=== PATIENT | female | born 1955 | race Two or more races ===

== ENCOUNTER 2017-04-11 10:46 | Day surgery (SDC) | payer BC, OTHER ==
[2017-04-11] MEDS ORDERED: PROPOFOL 200 MG/20 ML BOTTLE IV ONE (10:47)
[2017-04-11] MEDS ORDERED: LIDOCAINE HCL 2% 20 ML VIAL MC ONE (10:47)
[2017-04-11] MEDS ORDERED: IV NORMAL SALINE 1000 ML BAG IV ONE (10:47)
[2017-04-11 11:24] LABS: BASOPHILS # (AUTO) 0.1 K/uL (0.0-8.0); BASOPHILS % (AUTO) 0.7 % (0.0-2.0); EOSINOPHILS # (AUTO) 0.1 K/uL (0.0-0.7); EOSINOPHILS % (AUTO) 0.9 % (0.0-7.0); HEMATOCRIT 45.1 % (37-47); HEMOGLOBIN 14.9 G/DL (12.0-16.0); LYMPHOCYTES # (AUTO) 2.3 K/UL (0.8-4.8); LYMPHOCYTES % (AUTO) 28.5 % (20.5-51.5); MEAN CORPUSCULAR HEMOGLOBIN 29.5 UUG (27.0-31.0); MEAN CORPUSCULAR HGB CONC 33 g/dL (32.0-37.0); MEAN CORPUSCULAR VOLUME 89.3 FL (81.0-99.0); MONOCYTES # (AUTO) 0.4 K/UL (0.1-1.30); MONOCYTES % (AUTO) 4.8 % (0.0-11.0); NEUTROPHILS # (AUTO) 5.2 K/UL (1.8-8.9); NEUTROPHILS % (AUTO) 65.1 % (38.5-71.5); PLATELET COUNT (AUTO) 173 K/UL (150-450); RED BLOOD CELL COUNT(AUTO) 5.05 MIL/UL (4.2-5.4); WHITE BLOOD COUNT (AUTO) 8.1 K/UL (4.0-11.2)
[2017-04-11 11:30] LABS: CREATININE 1.1 mg/dL (0.6-1.3); POTASSIUM 4.1 mmol/L (3.5-5.1)
[2017-04-11 11:33] LABS: *BILIRUBIN,URIN NEGATIVE (NEGATIVE); *BLOOD, URINE Trace-intact (NEGATIVE); *COLOR,URINE YELLOW (YELLOW); *KETONES,URINE NEGATIVE (NEGATIVE); *PROTEIN,URINE NEGATIVE (NEGATIVE); *UROBILINOGEN,URINE 0.2 E.U./dl (NORMAL); LEUKOCYTE ESTERASE ,URINE NEGATIVE (NEGATIVE); NITRITE, URINE NEGATIVE (NEGATIVE)
[2017-04-11 11:36] LABS: *CLARITY,URINE HAZY (CLEAR); UGLUCOSE 2+ (NEGATIVE)
[2017-04-11 11:42] LABS: BACTERIA,URINE NONE SEEN /HPF (NONE SEEN); RBC,URINE NONE SEEN /HPF (0-3); SQUAMOUS EPITHELIAL CELL,UR NONE SEEN /HPF (NONE SEEN); WBC,URINE 0-3 /HPF (0-3)
== END 2017-04-11 14:32 | disposition home or self-care (01) ==
LOC: DS 10:46
PROVIDERS: ATTEND Internal Medicine Gastroenterology
DX: R13.10 Dysphagia, unspecified (principal); K29.70 Gastritis, unspecified, without bleeding; K75.81 Nonalcoholic steatohepatitis (NASH); K21.9 Gastro-esophageal reflux disease without esophagitis; I10 Essential (primary) hypertension; E11.9 Type 2 diabetes mellitus without complications; E66.01 Morbid (severe) obesity due to excess calories; Z98.890 Other specified postprocedural states; Z79.84 Long term (current) use of oral hypoglycemic drugs; Z87.891 Personal history of nicotine dependence; Z90.49 Acquired absence of other specified parts of digestive tract; Z90.710 Acquired absence of both cervix and uterus; Z88.8 Allergy status to other drugs, medicaments and biological substances; Z85.3 Personal history of malignant neoplasm of breast
CPT/HCPCS: 36415; 71010; 85025; 85730; 93005; A4217; A4663; J3490; J7030

== ENCOUNTER 2019-02-06 19:02 | Inpatient (IN) | payer BC, OTHER ==
[~2019-02-06] VITALS: Ht 167.6 cm; Wt 115.2 kg
[2019-02-06 20:45] VITALS: BP 155/77
[2019-02-06] MEDS ORDERED: MORP15TA60 PO (22:39)
[2019-02-06] MEDS ORDERED: DULA1.5P SQ (22:39)
[2019-02-06] MEDS ORDERED: ATOR10TA PO (22:39)
[2019-02-06] MEDS ORDERED: GABA300C PO (22:39)
[2019-02-06] MEDS ORDERED: OXYC5CAP18 PO ×2 (22:39)
[2019-02-06] MEDS ORDERED: OXYC5TAB3 PO (22:39)
[2019-02-06] MEDS ORDERED: METO25TA6 PO (22:39)
[2019-02-06] MEDS ORDERED: EMPA1TAB7 PO (22:39)
[2019-02-06] MEDS ORDERED: DEXTROSE 50% 50 ML DISP.SYRIN IV PRN (22:45)
[2019-02-06] MEDS ORDERED: HOME MED MISCELLANEOUS XX SCH ×2 (23:00)
[2019-02-06] MEDS ORDERED: OXYCODONE HCL 5 MG TABLET PO PRN ×2 (23:00)
[2019-02-07] MEDS: MORPHINE SULFATE SR 15 MG TABLET.SA PO SCH ×4 (00:19→21:05)
[2019-02-07 04:00] VITALS: BP 114/48
[2019-02-07] MEDS ORDERED: Z GUARD REMEDY PASTE 57 GM TUBE TOP PRN (04:00)
--- NOTE | 2019-02-07 04:56 | NUR ---
Patient arrived in the [facility] at 2044 via gurney and by two paramedics. AAO x4. Able to make needs known. Condition fair. VS: BP:155/77, HR:96, RR:16, O2 SAT: 98% on room air, T: 98.0. Admitting diagnosis: S/P Thoracic 8-9 laminectomy, Thoracic spinal stenosis. Dr. Martin was informed of admission. Patient interviewed, Physical and initial assessment done. Medication reconciliation done and contacted epic on-call doctor. All admission work done. Skin assessed and pictures taken and put in the chart. MRSA Swap sent to the lab. Pain assessed and reassessed after pain medication. Assisted her to the bathroom as needed. Keep her clean and dry. Safety measures maintained. Fall precaution observed. Bed in low position, side rails up x2 for safety, brake and alarm on. Patient educated to use the call light. Call light and personal belongings within reach. Will continue to monitor and will endorse to the day shift nurse accordingly.
[2019-02-07] MEDS: BLOOD SUGAR DIAGNOSTIC 1 EACH STRIP VI SCH ×4 (06:39→20:47)
[2019-02-07] MEDS: GABAPENTIN 300 MG CAPSULE PO SCH ×3 (08:16→17:16)
[2019-02-07] MEDS: METOPROLOL TARTRATE 25 MG TABLET PO SCH ×2 (08:16→17:17)
[2019-02-07] MEDS: OXYCODONE HCL 5 MG TABLET PO PRN ×4 (08:18→22:12)
[2019-02-07] MEDS: INSULIN REGULAR, HUMAN 300 UNIT/3 ML VIAL SQ PRN ×4 (08:26→21:04)
--- NOTE | 2019-02-07 08:30 | NUR ---
Received patient, awake, alert x4. Sitting in bed. With pain over mid to lower back rated as 8/10. PRN Oxycodone given. Not in any form of distress. TLSO brace kept in place. Right arm precautions maintained.
[2019-02-07 09:00] VITALS: BP 112/63
[2019-02-07] MEDS ORDERED: ATORVASTATIN 10 MG TABLET PO SCH (09:00)
--- NOTE | 2019-02-07 11:32 | NUR ---
Up with physical therapy, able to ambulate with front wheel walker. Tolerating therapy well.
--- NOTE | 2019-02-07 16:29 | NUR ---
Stone Crusher Operator assessment completed.
[2019-02-07 17:00] VITALS: BP 145/55
[2019-02-07 20:02] VITALS: BP 124/47
[2019-02-07 20:07] VITALS: BP 124/46
[2019-02-07] MEDS: ACETAMINOPHEN 325 MG TABLET PO PRN (20:48)
[2019-02-07] MEDS: ATORVASTATIN 10 MG TABLET PO SCH (20:48)
--- NOTE | 2019-02-07 21:14 | NUR ---
Received pt resting in bed. AAO x4. Assisted to the bathroom and walked around the hallway. TLSO brace on upon ambulation. No acute distress noted. C/o 8/10 generalized pain. Routine meds and pain med given as ordered. Temp elevated 99.8F. Tylenol PRN given. No s/s of infection on surgical site. Cooling measures provided. Blood sugar of 167, insulin coverage given as ordered. No s/s of hypo/hyperglycemia. Safety measures maintained. Call light and personal belongings within reach. Will continue to monitor.
--- NOTE | 2019-02-07 23:43 | NUR ---
Urine collected and sent to the lab.
--- NOTE | 2019-02-07 23:51 | NUR ---
Temp went down to 97.8F. Will continue to monitor.
[2019-02-07 23:54] LABS: *BILIRUBIN,URIN NEGATIVE (NEGATIVE); *BLOOD, URINE NEGATIVE (NEGATIVE); *CLARITY,URINE CLEAR (CLEAR); *COLOR,URINE LIGHT YELLOW (YELLOW); *KETONES,URINE NEGATIVE (NEGATIVE); *UROBILINOGEN,URINE 0.2 E.U./dl (NORMAL); LEUKOCYTE ESTERASE ,URINE NEGATIVE (NEGATIVE); NITRITE, URINE NEGATIVE (NEGATIVE); PH,URINE 5.5 (5.0-8.0); UGLUCOSE NEGATIVE (NEGATIVE)
[2019-02-08 05:29] VITALS: BP 126/54
[2019-02-08] MEDS: MORPHINE SULFATE SR 15 MG TABLET.SA PO SCH ×3 (05:29→21:06)
[2019-02-08] MEDS: BLOOD SUGAR DIAGNOSTIC 1 EACH STRIP VI SCH ×4 (06:33→20:10)
[2019-02-08 07:30] VITALS: BP 123/43
--- NOTE | 2019-02-08 07:30 | NUR ---
patient is alert, oriented x4,verbally responsive,no sob,resp even nonlabored,skin warm and dry to touch, no acute distress noted at this time
[2019-02-08 07:49] LABS: BASOPHILS % (AUTO) 0.8 % (0.0-2.0); EOSINOPHILS # (AUTO) 0.2 K/uL (0.0-0.7); EOSINOPHILS % (AUTO) 3.6 % (0.0-7.0); HEMATOCRIT 37.6 % (31.2-41.9); HEMOGLOBIN 12.5 g/dL (10.9-14.3); LYMPHOCYTES # (AUTO) 1.2 K/uL (20.0-40.0); LYMPHOCYTES % (AUTO) 19.9 % (20.5-51.5); MEAN CORPUSCULAR HGB CONC 33 g/dL (32.3-35.6); MEAN CORPUSCULAR VOLUME 89.8 fL (75.5-95.3); MONOCYTES # (AUTO) 0.5 K/uL (2.0-10.0); MONOCYTES % (AUTO) 8.4 % (0.0-11.0); NEUTROPHILS # (AUTO) 4.2 K/uL (1.8-8.9); NEUTROPHILS % (AUTO) 67.3 % (38.5-71.5); PLATELET COUNT (AUTO) 208 K/uL (179-408); RED BLOOD CELL COUNT(AUTO) 4.18 MIL/uL (3.63-4.92); WHITE BLOOD COUNT (AUTO) 6.3 K/uL (3.8-11.8)
[2019-02-08 08:07] LABS: THYROID STIMULATING HORMONE 0.533 mIU/mL (0.358-3.740)
[2019-02-08] MEDS: INSULIN REGULAR, HUMAN 300 UNIT/3 ML VIAL SQ PRN ×4 (08:27→20:13)
[2019-02-08 08:28] LABS: BILIRUBIN,TOTAL 0.4 mg/dL (0.2-1.0); CREATININE 0.8 mg/dL (0.6-1.3); PHOSPHOROUS 3.9 mg/dL (2.5-4.9); POTASSIUM 4.5 mmol/L (3.5-5.1); TOTAL PROTEIN, SERUM 6.4 g/dL (6.4-8.2); URIC ACID 5.8 mg/dL (2.6-6.0)
[2019-02-08] MEDS: OXYCODONE HCL 5 MG TABLET PO PRN ×4 (08:34→23:10)
[2019-02-08] MEDS: GABAPENTIN 300 MG CAPSULE PO SCH ×3 (08:34→17:11)
[2019-02-08] MEDS: METOPROLOL TARTRATE 25 MG TABLET PO SCH ×2 (09:00→17:11)
--- NOTE | 2019-02-08 11:39 | NUR ---
WOUND CARE CONSULT: PT PRESENTS WITH INTACT SKIN. PT IS AMBULATORY WITH WALKER AND CONTINENT. NO SKIN TEAR NOTED BETWEEN BUTTOCKS AT THIS TIME. PT STATES THAT SKIN ISSUE HAS RESOLVED. WILL SEE PRN. CURRENT SABAS SCORE IS 20.
--- NOTE | 2019-02-08 12:52 | NUR ---
INTERDISCIPLINARY TEAM CONFERENCE
[2019-02-08] MEDS: ACETAMINOPHEN 325 MG TABLET PO PRN (17:11)
--- NOTE | 2019-02-08 18:40 | NUR ---
END OF SHIFT NOTE PATIENT IS ALERT, ORIENTED X4, VERBALLY RESPONSIVE,NO SOB, RESP EVEN NONLABORED,SKIN WARM AND DRY TO TOUCH, NO ACUTE DISTRESS NOTED, PATIENT TOLERATED PT, OT SERVICES WELL, AMBULATING WITH FWW, ASSISTED WITH PERICARE, NOTED WITH TEMP 99.0, TYLENOL GIVEN ORDERED, PAIN IS MANAGED WITH ROUTINE MS CONTIN AND OXYIR EVERY 4 HOURS NEEDED. PATIENT REQUESTED OXYIR EVERY 4 HOURS FOR PAIN, DENIED ANY NAUSEA, OR VOMITING, HAD LARGE SOFT BM. CONTINUE WITH CURRENT PLAN OF CARE, WILL ENDORSE TO NEXT SHIFT ACCORDINGLY.
[2019-02-08 19:30] VITALS: BP 106/34
[2019-02-08] MEDS: ATORVASTATIN 10 MG TABLET PO SCH (20:10)
--- NOTE | 2019-02-08 20:41 | NUR ---
Received pt resting in bed. Assisted to the bathroom using walker, TLSO brace on during ambulation. AAO x4. No acute distress noted. Surgical site on the back healing well, no s/s of infection. Safety measures maintained. Call light and personal belongings within reach. Will continue to monitor.
[2019-02-09 04:20] VITALS: BP 116/58
[2019-02-09] MEDS: OXYCODONE HCL 5 MG TABLET PO PRN ×3 (04:20→17:02)
[2019-02-09] MEDS: MORPHINE SULFATE SR 15 MG TABLET.SA PO SCH ×3 (06:18→21:01)
[2019-02-09] MEDS: BLOOD SUGAR DIAGNOSTIC 1 EACH STRIP VI SCH ×4 (06:32→20:53)
[2019-02-09 07:00] VITALS: BP 131/46
[2019-02-09] MEDS: GABAPENTIN 300 MG CAPSULE PO SCH ×3 (08:34→17:02)
[2019-02-09] MEDS: METOPROLOL TARTRATE 25 MG TABLET PO SCH ×3 (08:34→17:13)
[2019-02-09] MEDS: INSULIN REGULAR, HUMAN 300 UNIT/3 ML VIAL SQ PRN ×4 (08:41→20:45)
--- NOTE | 2019-02-09 09:00 | NUR ---
Patient noted sitting up in bed, complaints of pain 7/10 in back, PRN Oxycodone 15mg given at this time, no signs of distress noted, TLSO brace placed this morning, call light in reach, bed locked and in lowest position, all needs met at this time.
--- NOTE | 2019-02-09 15:14 | NUR ---
INDIVIDUALIZE OVERALL PLAN OF CARE
[2019-02-09 16:00] VITALS: BP 149/64
[2019-02-09 19:38] VITALS: BP 110/47
--- NOTE | 2019-02-09 19:56 | NUR ---
Patient received in bed, AAO x4, able to make needs known. No acute distress or SOB noted. On room air. Complained of pain on her back rated 7/10 in numeric scale. Physical assessment done. Safety measures observed. Fall precaution maintained. Bed in low position, side rails up x2 for safety, brake and alarm on. call light and personal belongings within reach. Continue to monitor.
[2019-02-09] MEDS: ATORVASTATIN 10 MG TABLET PO SCH (20:57)
[2019-02-10] MEDS: OXYCODONE HCL 5 MG TABLET PO PRN ×2 (00:14→09:25)
--- NOTE | 2019-02-10 06:02 | NUR ---
End of the shift note Patient was stable throughout the shift and has a good sleep last night. No acute distress or SOB noted. On room air. Complained of pain on her back. VS checked. Accucheck at 2100, BS: 189 with 3 units insulin coverage based on insulin sliding scale. Physical assessment done. Pain assessed and reassessed after pain medication. All due medications given as ordered and well tolerated. Assisted her to the bathroom as needed. Keep her clean and dry. Hourly round done. Safety measures observed. Fall precaution maintained. Bed in low position, side rails up x2 for safety, brake and alarm on. call light and personal belongings within reach. Continue to monitor and will endorse to the day shift nurse accordingly.
[2019-02-10] MEDS: MORPHINE SULFATE SR 15 MG TABLET.SA PO SCH ×3 (06:34→21:08)
[2019-02-10] MEDS: BLOOD SUGAR DIAGNOSTIC 1 EACH STRIP VI SCH ×4 (06:37→20:43)
[2019-02-10 06:43] VITALS: BP 122/44
--- NOTE | 2019-02-10 08:00 | NUR ---
Received patient, awake, alert x4. With pain over lower back rated as 6/10. Not in any form of distress. No dizziness, headache, SOB or chest pains noted. Morning care done, oral care done.
[2019-02-10] MEDS: INSULIN REGULAR, HUMAN 300 UNIT/3 ML VIAL SQ PRN ×4 (08:20→20:21)
[2019-02-10] MEDS: CYANOCOBALAMIN 1000 MCG/ML VIAL IM SCH (08:23)
[2019-02-10] MEDS: GABAPENTIN 300 MG CAPSULE PO SCH ×3 (08:24→17:09)
[2019-02-10] MEDS: GLIMEPIRIDE 2 MG TABLET PO SCH (08:24)
[2019-02-10] MEDS: METOPROLOL TARTRATE 25 MG TABLET PO SCH ×2 (08:24→17:10)
[2019-02-10 09:00] VITALS: BP 128/50
--- NOTE | 2019-02-10 11:22 | NUR ---
Up with occupational therapy, tolerating well. PRN oxycodone given prior to therapy, tolerating well. Able to ambulate, no s/s of hypoglycemia, no doziness noted. With tolerable pain levels.
--- NOTE | 2019-02-10 19:22 | NUR ---
Patient received in bed, AAO x4, able to make needs known. No acute distress or SOB noted. On room air. Complained of pain on her back rated 6/10 in numeric scale. Physical assessment done. Asked her about her concerns and tried to addressed all those. Safety measures observed. Fall precaution maintained. Bed in low position, side rails up x2 for safety, brake and alarm on. call light and personal belongings within reach. Continue to monitor.
[2019-02-10 19:36] VITALS: BP 135/50
[2019-02-10] MEDS: ATORVASTATIN 10 MG TABLET PO SCH (20:18)
[2019-02-10] MEDS: DOCUSATE SODIUM 100 MG CAPSULE PO SCH (20:18)
[2019-02-11] MEDS: OXYCODONE HCL 5 MG TABLET PO PRN ×5 (00:12→23:41)
[2019-02-11 05:33] VITALS: BP 105/41
--- NOTE | 2019-02-11 05:54 | NUR ---
End of the shift note Patient was stable throughout the shift and has a good sleep last night. No acute distress or SOB noted. On room air. Complained of pain on her back. VS checked. Accucheck at 2100, BS: 280 with 6 units insulin coverage based on insulin sliding scale. Physical assessment done. Pain assessed and reassessed after pain medication. All due medications given as ordered and well tolerated. Assisted her to the bathroom as needed. Keep her clean and dry. Hourly round done. Safety measures observed. Fall precaution maintained. Bed in low position, side rails up x2 for safety, brake and alarm on. call light and personal belongings within reach. Continue to monitor and will endorse to the day shift nurse
[2019-02-11] MEDS: MORPHINE SULFATE SR 15 MG TABLET.SA PO SCH ×3 (06:23→21:04)
[2019-02-11] MEDS: BLOOD SUGAR DIAGNOSTIC 1 EACH STRIP VI SCH ×4 (06:32→20:11)
[2019-02-11] MEDS: GLIMEPIRIDE 2 MG TABLET PO SCH (08:34)
[2019-02-11] MEDS: METOPROLOL TARTRATE 25 MG TABLET PO SCH ×2 (08:34→17:09)
[2019-02-11] MEDS: GABAPENTIN 300 MG CAPSULE PO SCH ×3 (08:34→17:08)
[2019-02-11] MEDS: CYANOCOBALAMIN 1000 MCG/ML VIAL IM SCH (08:35)
[2019-02-11] MEDS: INSULIN REGULAR, HUMAN 300 UNIT/3 ML VIAL SQ PRN ×4 (08:48→20:12)
--- NOTE | 2019-02-11 09:27 | NUR ---
Patient noted sitting up in bed, assisted to restroom at this time, complaints of back pain 06/04, prn medication given, patient assisted to chair for breakfast, call light in reach, took all AM medications
[2019-02-11 16:00] VITALS: BP 139/41
--- NOTE | 2019-02-11 18:38 | NUR ---
PRN pain medications given for back pain this shift, no signs of distress, continued with TLSO brace, incision site on back clean and open to air.
[2019-02-11 19:20] VITALS: BP 134/51
[2019-02-11 19:25] VITALS: BP 115/51
--- NOTE | 2019-02-11 19:35 | NUR ---
PATIENT RECEIVED IN BED WATCHING TV. ALERT AND ORIENTED X 4. C/O PAIN UPON ASSESSMENT. OXY 15 GIVEN FOR PAIN MANAGEMENT. NO ASE. NO SOB OR DISTRESS NOTED AT THIS TIME. TOWEL IN PLACE FOR COMFORT BEHIND BACK. SUTURES IN TACT. SIDE RAILS UP BILATERALLY FOR SAFETY. CALL LIGHT AND FREQUENTLY USED ITEMS WITHIN REACH. WILL CONTINUE TO MONITOR.
[2019-02-11] MEDS: ATORVASTATIN 10 MG TABLET PO SCH (20:13)
[2019-02-11] MEDS: DOCUSATE SODIUM 100 MG CAPSULE PO SCH (20:13)
[2019-02-12] MEDS: OXYCODONE HCL 5 MG TABLET PO PRN ×5 (03:41→23:15)
[2019-02-12] MEDS: MORPHINE SULFATE SR 15 MG TABLET.SA PO SCH ×3 (05:46→21:02)
[2019-02-12 06:23] VITALS: BP 113/42
[2019-02-12] MEDS: BLOOD SUGAR DIAGNOSTIC 1 EACH STRIP VI SCH ×4 (06:30→20:44)
--- NOTE | 2019-02-12 06:37 | NUR ---
Patient slept on and off over night. PRN pain medications given x3. All due medications given, tolerated well. Morning BS shown to be 149. Side rails up bilaterally safety. Patient repositioned for comfort. Call light and frequently used items within reach. Will endorse to oncoming shift accordingly.
[2019-02-12 07:41] VITALS: BP 110/42
[2019-02-12] MEDS: GLIMEPIRIDE 2 MG TABLET PO SCH (08:09)
[2019-02-12] MEDS: METOPROLOL TARTRATE 25 MG TABLET PO SCH (08:09)
[2019-02-12] MEDS: GABAPENTIN 300 MG CAPSULE PO SCH ×3 (08:09→17:09)
[2019-02-12] MEDS: CYANOCOBALAMIN 1000 MCG/ML VIAL IM SCH (08:10)
[2019-02-12] MEDS: INSULIN REGULAR, HUMAN 300 UNIT/3 ML VIAL SQ PRN ×4 (08:19→20:59)
--- NOTE | 2019-02-12 08:40 | NUR ---
Patient assisted to chair at this time, call light in reach, no signs of distress noted, Complaints of back pain 06/04, PRN pain medication given at this time, took all AM medications, TLSO brace in place, 100% percent of breakfast eaten, will continue to monitor
[2019-02-12 15:43] VITALS: BP 122/43
--- NOTE | 2019-02-12 18:56 | NUR ---
PRN pain medication given this shift, no changes this shift, patient noted ambulating to restroom this shift with just stand by assist, all needs met at this time
[2019-02-12 19:16] VITALS: BP 137/54
[2019-02-12] MEDS: DOCUSATE SODIUM 100 MG CAPSULE PO SCH (20:49)
[2019-02-12] MEDS: ATORVASTATIN 10 MG TABLET PO SCH (20:50)
--- NOTE | 2019-02-12 21:13 | NUR ---
Received pt resting in bed and watching tv. AAO x4. No acute distress noted. C/o pain 8/10 on the back. Routine pain med and other due meds given as ordered. Blood sugar of 194, insulin coverage given per sliding scale. Safety measures maintained. Call light and personal belongings within reach. Will continue to monitor.
[2019-02-13] MEDS: OXYCODONE HCL 5 MG TABLET PO PRN ×4 (03:23→20:39)
[2019-02-13 06:14] VITALS: BP 102/44
[2019-02-13] MEDS: MORPHINE SULFATE SR 15 MG TABLET.SA PO SCH ×3 (06:17→21:01)
[2019-02-13] MEDS: BLOOD SUGAR DIAGNOSTIC 1 EACH STRIP VI SCH ×4 (06:36→20:37)
[2019-02-13] MEDS: GABAPENTIN 300 MG CAPSULE PO SCH ×3 (08:17→16:19)
[2019-02-13] MEDS: GLIMEPIRIDE 2 MG TABLET PO SCH (08:17)
[2019-02-13] MEDS: CYANOCOBALAMIN 1000 MCG/ML VIAL IM SCH (08:18)
[2019-02-13] MEDS: INSULIN REGULAR, HUMAN 300 UNIT/3 ML VIAL SQ PRN ×4 (08:23→20:39)
[2019-02-13] MEDS: BENAZEPRIL HCL 10 MG TABLET PO SCH (08:24)
[2019-02-13 08:44] VITALS: BP 133/61
--- NOTE | 2019-02-13 09:01 | NUR ---
Received pt. on bed, comfortable in no distress. A/OX4 verbally responsive and able to make her needs known. Denies CP or SOB. All due medications given and tolerated well. No s/sx of hypo/hyperglycemia. No new skin condition noted. All pt. needs attended and met promptly. Safety measures in place. Call light and all frequently used items within pt. reach.
[2019-02-13 17:08] VITALS: BP 132/67
--- NOTE | 2019-02-13 18:27 | NUR ---
End of shift note: No sign of acute distress or SOB was noted. Kept pt clean and dry throughout this shift. Safety measures maintained. All needs attended and met promptly. Bed in low position, brake on, side rails up x2 as an enabler. Call light and all frequently used items within pt. reach. Will endorse to next shift accordingly
--- NOTE | 2019-02-13 19:18 | NUR ---
Pt. with c/o RT/LT flank area muscle spasms. Dr. Martin promptly made aware with order for Robaxin 500 mg po TID PRN. Orders noted and carried out. Pt. made aware.
[2019-02-13 19:26] VITALS: BP 112/47
--- NOTE | 2019-02-13 19:37 | NUR ---
Patient received in be alert and oriented x 4, watching TV in bed. C/O flank pain. Will administer Robaxin when pharmacy delivers medication. No C/O distress or SOB at this time. Back sutures in tact and open to air. Protected with a towel. Water refreshed, and bathroom needs attended to. Sire rails up bilaterally for safety. Call light and frequently used items within reach. Will continue to monitor.
[2019-02-13] MEDS: DOCUSATE SODIUM 100 MG CAPSULE PO SCH (20:39)
[2019-02-13] MEDS: ATORVASTATIN 10 MG TABLET PO SCH (20:39)
[2019-02-13] MEDS: METHOCARBAMOL 500 MG TABLET PO PRN (21:53)
[2019-02-14] MEDS: METHOCARBAMOL 500 MG TABLET PO PRN ×3 (02:27→20:58)
[2019-02-14] MEDS: OXYCODONE HCL 5 MG TABLET PO PRN ×2 (04:42→11:45)
[2019-02-14] MEDS: MORPHINE SULFATE SR 15 MG TABLET.SA PO SCH ×3 (05:04→21:00)
[2019-02-14 05:59] VITALS: BP 124/45
[2019-02-14] MEDS: BLOOD SUGAR DIAGNOSTIC 1 EACH STRIP VI SCH ×4 (06:39→20:38)
--- NOTE | 2019-02-14 07:00 | NUR ---
Patient slept poorly overnight. PRN pain medications given x2. All due medications given, tolerated well. Morning BS shown to be 172. Side rails up bilaterally safety. Patient repositioned for comfort. Call light and frequently used items within reach. Will endorse to oncoming shift accordingly.
[2019-02-14] MEDS: GABAPENTIN 300 MG CAPSULE PO SCH ×3 (08:24→16:51)
[2019-02-14] MEDS: GLIMEPIRIDE 2 MG TABLET PO SCH (08:24)
[2019-02-14] MEDS: INSULIN REGULAR, HUMAN 300 UNIT/3 ML VIAL SQ PRN ×4 (08:25→20:35)
[2019-02-14] MEDS: BENAZEPRIL HCL 10 MG TABLET PO SCH (08:44)
[2019-02-14 08:49] VITALS: BP 119/50
--- NOTE | 2019-02-14 08:54 | NUR ---
Received pt. in bed, comfortable in no distress. A/OX4 verbally responsive and able to make her needs known. All due medications given and tolerated well. No s/sx of hypo/hyperglycemia. No new skin condition noted. Pt. c/o mild muscle spasms around her lower back, PRN robaxin given as ordered. All pt. needs attended and met promptly. Safety measures in place. Call light and all frequently used items within pt. reach.
--- NOTE | 2019-02-14 13:14 | NUR ---
Obtained PRN MOM order from Dr. Martin per pt. request. MD amenable with order. Orders noted and carried out. Pt. made aware and thankful.
[2019-02-14] MEDS ORDERED: MAGNESIUM HYDROXIDE 30 ML LIQUID UDC PO PRN (13:15)
[2019-02-14 16:36] VITALS: BP 148/65
--- NOTE | 2019-02-14 18:05 | NUR ---
End of shift note: No significant change during this shift. All needs attended and met promptly. Safety measures in placed. Bed in low position, brake on, side rails up x2 as an enabler. Call light and all frequently used items within pt. reach. Will endorse to next shift accordingly
[2019-02-14 19:27] VITALS: BP 113/40
[2019-02-14] MEDS: DOCUSATE SODIUM 100 MG CAPSULE PO SCH (20:32)
[2019-02-14] MEDS: ATORVASTATIN 10 MG TABLET PO SCH (20:32)
[2019-02-15] MEDS: OXYCODONE HCL 5 MG TABLET PO PRN ×2 (01:38→10:45)
--- NOTE | 2019-02-15 06:01 | NUR ---
End of the shift note Patient was stable throughout the shift and has a good sleep last night. No acute distress or SOB noted. On room air. Complained of pain on her back. VS checked. Accucheck at 2100, BS: 192 with 3 units insulin coverage based on insulin sliding scale. Physical assessment done. Pain assessed and reassessed after pain medication. All due medications given as ordered and well tolerated. Assisted her to the bathroom as needed. Keep her clean and dry. Hourly round done. Safety measures observed. Fall precaution maintained. Bed in low position, side rails up x2 for safety, brake and alarm on. call light and personal belongings within reach. Continue to monitor and will endorse to the day shift nurse accordingly.
[2019-02-15] MEDS: MORPHINE SULFATE SR 15 MG TABLET.SA PO SCH ×3 (06:10→21:02)
[2019-02-15 06:26] VITALS: BP 126/54
[2019-02-15] MEDS: BLOOD SUGAR DIAGNOSTIC 1 EACH STRIP VI SCH ×4 (06:33→20:12)
[2019-02-15] MEDS: INSULIN REGULAR, HUMAN 300 UNIT/3 ML VIAL SQ PRN ×4 (08:03→20:11)
[2019-02-15] MEDS: GABAPENTIN 300 MG CAPSULE PO SCH ×3 (08:08→17:12)
[2019-02-15] MEDS: BENAZEPRIL HCL 10 MG TABLET PO SCH (08:09)
[2019-02-15] MEDS: GLIMEPIRIDE 2 MG TABLET PO SCH (08:09)
--- NOTE | 2019-02-15 08:11 | NUR ---
Received patient, awake alert x4. Not in any form of distress. No S/S of hypoglycemia. With tolerable pain over lower back. Said with discomfort over lower abdominal area and feels constipated.
[2019-02-15] MEDS ORDERED: BISACODYL 10 MG SUPP.RECT RC ONE (08:45)
[2019-02-15 09:00] VITALS: BP 131/61
[2019-02-15] MEDS ORDERED: LACTULOSE 20 G/30 ML LIQUID UDC PO PRN (10:30)
--- NOTE | 2019-02-15 14:22 | NUR ---
INTERDISCIPLINARY TEAM CONFERENCE
[2019-02-15 17:00] VITALS: BP 139/71
[2019-02-15] MEDS: METHOCARBAMOL 500 MG TABLET PO PRN (17:14)
[2019-02-15 19:42] VITALS: BP 128/72
[2019-02-15] MEDS: ATORVASTATIN 10 MG TABLET PO SCH (20:07)
[2019-02-15] MEDS: DOCUSATE SODIUM 100 MG CAPSULE PO SCH (20:08)
--- NOTE | 2019-02-15 23:30 | NUR ---
patient developed a high HR ranging from 102-117 after going to the bathroom. T:99.1, BP: 128/74, O2 sat: 97%. No other symptoms noted. Denied dizziness, headache, or other symptoms. Made patient comfortable, Morphine sulfate 15 mg (Scheduled pain medication) administered and closely monitored the patient. HR gradually came back to normal limit (92-96). Burglar Alarm Mechanic was informed about the patient condition. Continue to monitor.
[2019-02-16] MEDS: METHOCARBAMOL 500 MG TABLET PO PRN ×2 (00:38→18:43)
[2019-02-16] MEDS: OXYCODONE HCL 5 MG TABLET PO PRN ×4 (00:39→23:41)
--- NOTE | 2019-02-16 05:38 | NUR ---
End of the shift note Patient was stable throughout the shift and has a good sleep last night, except for a temporary high HR (described in separate note). No acute distress or SOB noted. On room air. Complained of pain on her back. VS checked. Accucheck at 2100, BS: 183 with 3 units insulin coverage based on insulin sliding scale. Physical assessment done. Pain assessed and reassessed after pain medication. All due medications given as ordered and well tolerated. Assisted her to the bathroom as needed. Keep her clean and dry. Hourly round done. Safety measures observed. Fall precaution maintained. Bed in low position, side rails up x2 for safety, brake and alarm on. call light and personal belongings within reach. Continue to monitor and will endorse to the day shift nurse accordingly.
[2019-02-16] MEDS: MORPHINE SULFATE SR 15 MG TABLET.SA PO SCH ×3 (06:05→21:06)
[2019-02-16 06:50] VITALS: BP 119/51
[2019-02-16] MEDS: BLOOD SUGAR DIAGNOSTIC 1 EACH STRIP VI SCH ×4 (07:59→20:32)
--- NOTE | 2019-02-16 08:00 | NUR ---
Received patient, awake, alert x4 resting in bed. Not in any form of distress. With pain over lower back rated as 7/10. No S/S of hypoglycemia. Patient said she will be discharged tomorrow.
[2019-02-16] MEDS: GABAPENTIN 300 MG CAPSULE PO SCH ×3 (08:42→17:33)
[2019-02-16] MEDS: GLIMEPIRIDE 2 MG TABLET PO SCH (08:42)
[2019-02-16] MEDS: DOCUSATE SODIUM 100 MG CAPSULE PO SCH ×2 (08:42→20:38)
[2019-02-16] MEDS: BENAZEPRIL HCL 10 MG TABLET PO SCH (08:43)
[2019-02-16 09:00] VITALS: BP 135/70
--- NOTE | 2019-02-16 09:55 | NUR ---
Patient sitting up in chair doing independent exercises, kept TLSO brace on. With tolerable pain levels.
[2019-02-16] MEDS: INSULIN REGULAR, HUMAN 300 UNIT/3 ML VIAL SQ PRN ×2 (12:27→20:39)
[2019-02-16] MEDS ORDERED: METO25TA6 PO (13:51)
[2019-02-16] MEDS ORDERED: METOPROLOL TARTRATE 25 MG TABLET PO SCH (14:00)
[2019-02-16 16:00] VITALS: BP 110/44
[2019-02-16] MEDS: METOPROLOL TARTRATE 25 MG TABLET PO SCH ×2 (17:34→20:38)
[2019-02-16 20:15] VITALS: BP 125/48
[2019-02-16] MEDS: ATORVASTATIN 10 MG TABLET PO SCH (20:38)
[2019-02-16] MEDS: ACETAMINOPHEN 325 MG TABLET PO PRN (20:38)
--- NOTE | 2019-02-16 21:30 | NUR ---
Received pt resting in bed. AAO x4. No acute distress noted. Pain 9/10 on the back, routine pain med and other due meds given as order. VSS. Pt to be d/c tomorrow. TMS in chart. Safety measures maintained. Call light and personal belongings within reach. Will continue to monitor.
[2019-02-17] MEDS: MORPHINE SULFATE SR 15 MG TABLET.SA PO SCH (05:02)
[2019-02-17 06:20] VITALS: BP 115/42
[2019-02-17] MEDS: BLOOD SUGAR DIAGNOSTIC 1 EACH STRIP VI SCH ×2 (06:31→11:54)
[2019-02-17] MEDS: DOCUSATE SODIUM 100 MG CAPSULE PO SCH (08:09)
[2019-02-17] MEDS: METOPROLOL TARTRATE 25 MG TABLET PO SCH (08:09)
[2019-02-17] MEDS: GABAPENTIN 300 MG CAPSULE PO SCH ×2 (08:09→12:15)
[2019-02-17] MEDS: GLIMEPIRIDE 2 MG TABLET PO SCH (08:09)
[2019-02-17] MEDS: OXYCODONE HCL 5 MG TABLET PO PRN (08:10)
[2019-02-17] MEDS: INSULIN REGULAR, HUMAN 300 UNIT/3 ML VIAL SQ PRN ×2 (08:13→12:15)
--- NOTE | 2019-02-17 08:58 | NUR ---
Received pt. in bed, comfortable in no distress. A/OX4 verbally responsive and able to make her needs known. All due medications given and tolerated well. No s/sx of hypo/hyperglycemia. No new skin condition noted. Pt. stated DTR to pick her up at around 1830 today. All pt. needs attended and met promptly. Safety measures in place. Call light and all frequently used items within pt. reach.
[2019-02-17 09:00] VITALS: BP 133/52
--- NOTE | 2019-02-17 13:39 | NUR ---
Discharge Note: Pt. received all due medication as ordered. Resident remained stable at this time. Dr. Martin deemed pt. safe for discharge today 02/17/19 with orders. Orders noted and carried out. Routine round with pt; pt. remain cooperative, A/OX4 with capacity to make decision. Lungs sounds clear to auscultation bilaterally, no respiratory distress. Heart with regular rate and rhythm, no murmur, rub or gallop. Abdomen soft, non-tender, bowel sounds present in all 4 quadrants. Conjunctivae clear, PERRL. Pt. served with lunch as ordered and tolerated well. No s/sx of hypo/hyperglycemia, covered with Humulin R as ordered. All belongings are prepared. Inventory done all accountable for. Instructed pt. to follow up with PCP, per Pt. she will make arrangement with Dr. Justa Alexander . Pt. teaching provided which include but not limited to meds administration, risk of fall, and skin mgt. Faxed RX to [facility], pt. choice of pharmacy. Pictures taken of mid back surgical incision and filed in chart, no s/sx of infection noted. 1300 Daughter (Severino Felipe) arrived on-site. Gave pt. information regarding returning to community. Discharge paper signed by pt. Provided pt. discharge packet with RX. New FWW provided to pt. Pt took brought in TLSO brace. No further questions from the resident and family member about the discharge instructions at this time and verbalized clear understanding. Assisted resident safely to pvt vehicle. Pt. left the facility at 1330 and d/c to home with home health to be arrange by JONATHAN.
== END 2019-02-17 13:30 | disposition home health service (06) | DRG 560 ==
PROVIDERS: ADMIT Physical Medicine & Rehabilitation Pain Medicine; ATTEND Physical Medicine & Rehabilitation Pain Medicine
DX: Z47.89 Encounter for other orthopedic aftercare (principal); D68.59 Other primary thrombophilia; Z68.41 Body mass index [BMI] 40.0-44.9, adult; E44.0 Moderate protein-calorie malnutrition; Z90.11 Acquired absence of right breast and nipple; Z85.3 Personal history of malignant neoplasm of breast; E66.01 Morbid (severe) obesity due to excess calories; I10 Essential (primary) hypertension; Z90.10 Acquired absence of unspecified breast and nipple; K21.9 Gastro-esophageal reflux disease without esophagitis; E11.65 Type 2 diabetes mellitus with hyperglycemia; E53.8 Deficiency of other specified B group vitamins; E78.5 Hyperlipidemia, unspecified; M51.16 Intervertebral disc disorders with radiculopathy, lumbar region; M51.24 Other intervertebral disc displacement, thoracic region; G89.29 Other chronic pain; R26.9 Unspecified abnormalities of gait and mobility; M62.838 Other muscle spasm; R00.0 Tachycardia, unspecified; Z88.1 Allergy status to other antibiotic agents; Z88.2 Allergy status to sulfonamides; Z88.8 Allergy status to other drugs, medicaments and biological substances; M48.04 Spinal stenosis, thoracic region
CPT/HCPCS: 36415; 71045; 82652; 83735; 84100; 84443; 84550; 85025; 87086; 92523; 92526; 92610; 97110; 97112; 97116; 97165; 97530; 97535; A4663; J1815; J3420

== ENCOUNTER 2021-07-19 07:58 | Emergency (ER) | payer BC, OTHER ==
[~2021-07-19] VITALS: Ht 167.6 cm; Wt 106.6 kg
[~2021-07-19 07:58] MED LIST: ATOR10TA PO; DULA1.5P SQ; EMPA1TAB7 PO; GABA300C PO; METO25TA6 PO; MORP15TA60 PO; OXYC5CAP18 PO; OXYC5TAB3 PO
[2021-07-19] MEDS ORDERED: ACETAMINOPHEN 325 MG TABLET PO ONE (08:15)
[2021-07-19] MEDS ORDERED: ACETAMINOPHEN 325 MG TABLET ONE (08:24)
[2021-07-19] MEDS ORDERED: GABA-532 PO (08:28)
[2021-07-19] MEDS ORDERED: INSU100V28 SQ (08:28)
[2021-07-19] MEDS ORDERED: ALPR0.5T8 PO (08:28)
[2021-07-19] MEDS ORDERED: DULA1.5P SQ (08:28)
[2021-07-19] MEDS ORDERED: LOSA1TAB39 PO (08:28)
[2021-07-19] MEDS ORDERED: GABA600T12 PO (08:28)
[2021-07-19 08:33] VITALS: BP 146/65
--- NOTE | 2021-07-19 08:33 | NUR ---
Patient discharged to home in stable condition. Written and verbal after care instructions given. Patient verbalizes understanding of instructions. Stressed follow up or return to ER for worsening s/s.
== END 2021-07-19 08:34 | disposition home or self-care (01) ==
LOC: ER 07:58
DX: S29.012A Strain of muscle and tendon of back wall of thorax, initial encounter (principal); M53.3 Sacrococcygeal disorders, not elsewhere classified; S09.90XA Unspecified injury of head, initial encounter; W01.0XXA Fall on same level from slipping, tripping and stumbling without subsequent striking against object, initial encounter; Y93.01 Activity, walking, marching and hiking; Y92.238 Other place in hospital as the place of occurrence of the external cause; Z88.1 Allergy status to other antibiotic agents; Z88.8 Allergy status to other drugs, medicaments and biological substances; I10 Essential (primary) hypertension; E78.5 Hyperlipidemia, unspecified; E11.9 Type 2 diabetes mellitus without complications; Z85.3 Personal history of malignant neoplasm of breast; Z79.899 Other long term (current) drug therapy; G89.29 Other chronic pain; M54.9 Dorsalgia, unspecified
CPT/HCPCS: A4663

== ENCOUNTER 2023-08-16 15:58 | Inpatient (IN) | payer BC ==
[~2023-08-16] VITALS: Ht 167.6 cm; Wt 103.4 kg
[~2023-08-16 15:58] MED LIST changes: +ALPR0.5T8 PO; +GABA-532 PO; -GABA300C PO; +GABA600T12 PO; +INSU100V28 SQ; +LOSA1TAB39 PO; -MORP15TA60 PO; -OXYC5TAB3 PO
[2023-08-17 19:50] VITALS: BP 127/60; TEMP 98.8; O2SAT 98
[2023-08-17] MEDS ORDERED: ALPR0.25 PO (20:17)
[2023-08-17] MEDS ORDERED: CALC500T88 PO (20:17)
[2023-08-17] MEDS ORDERED: APIX5TAB PO (20:17)
[2023-08-17] MEDS ORDERED: ALPR0.5T PO (20:17)
[2023-08-17] MEDS ORDERED: OSCAL (20:17)
[2023-08-17] MEDS ORDERED: CARV25TA2 PO (20:17)
[2023-08-17] MEDS ORDERED: ATOR40TA PO (20:17)
[2023-08-17] MEDS ORDERED: ACET325C7 PO (20:17)
[2023-08-17] MEDS ORDERED: GABA300C PO ×2 (20:24)
[2023-08-17] MEDS ORDERED: MAGN400O6 PO (20:24)
[2023-08-17] MEDS ORDERED: CLOT30SO2 TP (20:24)
[2023-08-17] MEDS ORDERED: MAG-83 PO (20:24)
[2023-08-17] MEDS ORDERED: vitamin d 3 PO (20:24)
[2023-08-17] MEDS ORDERED: FURO-152 PO (20:24)
[2023-08-17] MEDS ORDERED: LOSA100T31 PO (20:24)
[2023-08-17] MEDS ORDERED: PETR113P TP (20:28)
[2023-08-17] MEDS ORDERED: PANT40TA49 PO (20:28)
[2023-08-17] MEDS ORDERED: ONDA4TAB11 PO (20:28)
[2023-08-17] MEDS ORDERED: OXY IR PO (20:33)
[2023-08-17] MEDS ORDERED: DOCUSATE SODIUM 100 MG CAPSULE PO PRN (22:00)
[2023-08-17] MEDS ORDERED: TEMAZEPAM 15 MG CAPSULE PO PRN (22:00)
[2023-08-17] MEDS ORDERED: MIRALAX 17 GM POWD.PACK PO PRN (22:00)
[2023-08-17] MEDS ORDERED: DEXTROSE 50% 50 ML DISP.SYRIN IV PRN (22:00)
[2023-08-17] MEDS: BLOOD SUGAR DIAGNOSTIC 1 EACH STRIP VI SCH (22:17)
[2023-08-17] MEDS: INSULIN REGULAR, HUMAN 300 UNIT/3 ML VIAL SQ PRN (22:19)
[2023-08-17] MEDS: HYDROCODONE/APAP 5-325MG TABLET PO PRN (22:41)
[2023-08-18 04:00] VITALS: BP 159/45; TEMP 98; O2SAT 97
[2023-08-18] MEDS ORDERED: REMEDY ESSENTIAL ZINC PASTE 113 GM TOP PRN (06:15)
[2023-08-18] MEDS: HYDROCODONE/APAP 5-325MG TABLET PO PRN ×2 (06:54→15:51)
[2023-08-18] MEDS: BLOOD SUGAR DIAGNOSTIC 1 EACH STRIP VI SCH ×4 (06:58→20:44)
[2023-08-18 07:56] VITALS: BP 147/63; TEMP 98.6; O2SAT 97
[2023-08-18] MEDS: INSULIN REGULAR, HUMAN 300 UNIT/3 ML VIAL SQ PRN ×4 (08:21→20:45)
[2023-08-18] MEDS ORDERED: ONDANSETRON ODT 4 MG TAB.RAPDIS SL PRN (08:30)
[2023-08-18] MEDS ORDERED: MAGNESIUM HYDROXIDE 30 ML LIQUID UDC PO PRN (08:30)
[2023-08-18] MEDS ORDERED: ALPRAZOLAM 0.5 MG TABLET PO PRN (08:30)
[2023-08-18] MEDS ORDERED: GABAPENTIN 300 MG CAPSULE PO SCH (09:00)
[2023-08-18] MEDS ORDERED: FUROSEMIDE 20 MG TABLET PO SCH (09:00)
[2023-08-18] MEDS ORDERED: ALPR0.5T8 PO (09:56)
[2023-08-18] MEDS ORDERED: EMPA1TAB24 PO (09:56)
[2023-08-18] MEDS ORDERED: DULA1.5P SQ (09:58)
[2023-08-18] MEDS ORDERED: TRAZ-257 PO (10:27)
[2023-08-18] MEDS ORDERED: INSU100V28 SUBCUT (11:02)
[2023-08-18] MEDS: CHOLECALCIFEROL 1,000 UNIT TABLET PO SCH (11:08)
[2023-08-18] MEDS: PANTOPRAZOLE SODIUM 40 MG TABLET.DR PO SCH (11:08)
[2023-08-18] MEDS: CALCIUM CARBONATE 600 MG TABLET PO SCH (11:08)
[2023-08-18] MEDS: GABAPENTIN 300 MG CAPSULE PO SCH ×2 (11:08→20:38)
[2023-08-18] MEDS: CARVEDILOL 25 MG TABLET PO SCH ×2 (11:19→16:32)
[2023-08-18] MEDS: LOSARTAN POTASSIUM 50 MG TABLET PO SCH (11:20)
[2023-08-18] MEDS: APIXABAN 5 MG TABLET PO SCH ×2 (11:27→16:48)
[2023-08-18 16:27] VITALS: BP 146/58; TEMP 98.5; O2SAT 96
[2023-08-18 20:00] VITALS: BP 133/53; TEMP 98.6; O2SAT 97
[2023-08-18] MEDS: ATORVASTATIN 40 MG TABLET PO SCH (20:38)
[2023-08-18] MEDS: CLOTRIMAZOLE 1% CREAM 30 GM TUBE TOP SCH (20:38)
[2023-08-19] MEDS: HYDROCODONE/APAP 5-325MG TABLET PO PRN (02:20)
[2023-08-19 04:00] VITALS: BP 161/56; TEMP 98.6; O2SAT 98
[2023-08-19] MEDS: ACETAMINOPHEN 650 MG/20.3 ML LIQUID UDC GT PRN ×2 (04:49→11:30)
[2023-08-19] MEDS: BLOOD SUGAR DIAGNOSTIC 1 EACH STRIP VI SCH ×4 (06:43→20:31)
[2023-08-19 07:35] VITALS: BP 151/60; TEMP 97.8; O2SAT 97
[2023-08-19] MEDS: INSULIN REGULAR, HUMAN 300 UNIT/3 ML VIAL SQ PRN ×4 (08:15→20:31)
[2023-08-19] MEDS: CALCIUM CARBONATE 600 MG TABLET PO SCH (08:17)
[2023-08-19] MEDS: PANTOPRAZOLE SODIUM 40 MG TABLET.DR PO SCH (08:17)
[2023-08-19] MEDS: APIXABAN 5 MG TABLET PO SCH ×2 (08:19→17:23)
[2023-08-19] MEDS: CARVEDILOL 25 MG TABLET PO SCH ×2 (08:30→17:22)
[2023-08-19] MEDS: LOSARTAN POTASSIUM 50 MG TABLET PO SCH (08:30)
[2023-08-19] MEDS: CHOLECALCIFEROL 1,000 UNIT TABLET PO SCH (08:32)
[2023-08-19] MEDS: GABAPENTIN 300 MG CAPSULE PO SCH ×2 (08:34→20:25)
[2023-08-19] MEDS: CLOTRIMAZOLE 1% CREAM 30 GM TUBE TOP SCH ×2 (09:33→20:26)
[2023-08-19] MEDS ORDERED: OXYCODONE HCL 5 MG TABLET PO ONE (12:00)
[2023-08-19] MEDS: OXYCODONE HCL 5 MG TABLET PO SCH ×2 (15:01→16:01)
[2023-08-19 16:05] VITALS: BP 120/53; TEMP 98.6; O2SAT 99
[2023-08-19 20:00] VITALS: BP 102/37; TEMP 98.1; O2SAT 98
[2023-08-19] MEDS: ATORVASTATIN 40 MG TABLET PO SCH (20:25)
[2023-08-20 05:29] VITALS: BP 143/58; TEMP 98.7; O2SAT 98
[2023-08-20 06:42] LABS: BASOPHILS % (AUTO) 0.7 % (0.0-2.0); EOSINOPHILS # (AUTO) 0.1 K/uL (0.0-0.7); EOSINOPHILS % (AUTO) 2.4 % (0.0-7.0); HEMATOCRIT 41.9 % (31.2-41.9); HEMOGLOBIN 14.2 g/dL (10.9-14.3); LYMPHOCYTES # (AUTO) 1.9 K/uL (0.8-4.8); MEAN CORPUSCULAR HEMOGLOBIN 30.8 uug (24.7-32.8); MEAN CORPUSCULAR HGB CONC 34 g/dL (32.3-35.6); MEAN CORPUSCULAR VOLUME 90.7 fL (75.5-95.3); MONOCYTES # (AUTO) 0.4 K/uL (0.1-1.30); MONOCYTES % (AUTO) 5.9 % (0.0-11.0); NEUTROPHILS # (AUTO) 3.6 K/uL (1.8-8.9); PLATELET COUNT (AUTO) 178 K/uL (179-408); RED BLOOD CELL COUNT(AUTO) 4.62 MIL/uL (3.63-4.92); RED CELL DISTRIBUTION WIDTH 14.3 % (12.3-17.7); WHITE BLOOD COUNT (AUTO) 6.1 K/uL (3.8-11.8)
[2023-08-20] MEDS: OXYCODONE HCL 5 MG TABLET PO SCH ×3 (06:44→22:53)
[2023-08-20 06:50] LABS: DIFFERENTIAL COMMENT 1
[2023-08-20 06:53] LABS: CALCIUM 9.3 mg/dL (8.5-10.1); CREATININE 0.7 mg/dL (0.6-1.3); PHOSPHOROUS 3.1 mg/dL (2.5-4.9); POTASSIUM 4.5 mmol/L (3.5-5.1)
[2023-08-20] MEDS: BLOOD SUGAR DIAGNOSTIC 1 EACH STRIP VI SCH ×4 (07:19→20:44)
[2023-08-20 08:01] VITALS: BP 153/58; TEMP 98.3; O2SAT 99
[2023-08-20] MEDS: INSULIN REGULAR, HUMAN 300 UNIT/3 ML VIAL SQ PRN ×4 (08:08→20:47)
[2023-08-20] MEDS: CALCIUM CARBONATE 600 MG TABLET PO SCH (08:34)
[2023-08-20] MEDS: CHOLECALCIFEROL 1,000 UNIT TABLET PO SCH (08:34)
[2023-08-20] MEDS: CARVEDILOL 25 MG TABLET PO SCH ×2 (08:34→17:26)
[2023-08-20] MEDS: PANTOPRAZOLE SODIUM 40 MG TABLET.DR PO SCH (08:35)
[2023-08-20] MEDS: LOSARTAN POTASSIUM 50 MG TABLET PO SCH (08:35)
[2023-08-20] MEDS: GABAPENTIN 300 MG CAPSULE PO SCH ×2 (08:35→20:44)
[2023-08-20] MEDS: APIXABAN 5 MG TABLET PO SCH ×2 (08:37→17:25)
[2023-08-20] MEDS: CLOTRIMAZOLE 1% CREAM 30 GM TUBE TOP SCH ×2 (08:38→20:43)
[2023-08-20] MEDS: NEOMY/BACITRAC/POLYMI OINT 28.35 GM TUBE TOP SCH ×2 (15:12→17:23)
[2023-08-20 16:08] VITALS: BP 119/49; TEMP 98.2; O2SAT 100
[2023-08-20 20:26] VITALS: BP 109/46; TEMP 98.5; O2SAT 98
[2023-08-20] MEDS: ACETAMINOPHEN 650 MG/20.3 ML LIQUID UDC GT PRN (20:42)
[2023-08-20] MEDS: ATORVASTATIN 40 MG TABLET PO SCH (20:44)
[2023-08-21 04:37] VITALS: BP 132/48; TEMP 98.4; O2SAT 99
[2023-08-21] MEDS: OXYCODONE HCL 5 MG TABLET PO SCH ×3 (06:19→21:30)
[2023-08-21] MEDS: BLOOD SUGAR DIAGNOSTIC 1 EACH STRIP VI SCH ×4 (06:34→21:20)
[2023-08-21 08:00] VITALS: BP 143/65; TEMP 98; O2SAT 98
[2023-08-21] MEDS: CHOLECALCIFEROL 1,000 UNIT TABLET PO SCH (08:34)
[2023-08-21] MEDS: LOSARTAN POTASSIUM 50 MG TABLET PO SCH (08:35)
[2023-08-21] MEDS: CALCIUM CARBONATE 600 MG TABLET PO SCH (08:35)
[2023-08-21] MEDS: APIXABAN 5 MG TABLET PO SCH ×2 (08:37→15:57)
[2023-08-21] MEDS: CARVEDILOL 25 MG TABLET PO SCH ×2 (08:38→15:58)
[2023-08-21] MEDS: CLOTRIMAZOLE 1% CREAM 30 GM TUBE TOP SCH ×3 (08:38→21:47)
[2023-08-21] MEDS: GABAPENTIN 300 MG CAPSULE PO SCH ×2 (08:38→21:30)
[2023-08-21] MEDS: PANTOPRAZOLE SODIUM 40 MG TABLET.DR PO SCH (08:38)
[2023-08-21] MEDS: NEOMY/BACITRAC/POLYMI OINT 28.35 GM TUBE TOP SCH ×2 (08:39→16:04)
[2023-08-21] MEDS: ACETAMINOPHEN 650 MG/20.3 ML LIQUID UDC GT PRN ×2 (08:40→16:08)
[2023-08-21] MEDS: INSULIN REGULAR, HUMAN 300 UNIT/3 ML VIAL SQ PRN ×3 (08:43→21:42)
[2023-08-21] MEDS ORDERED: PETR113P TP (11:09)
[2023-08-21] MEDS: REMEDY ESSENTIAL ZINC PASTE 113 GM TOP SCH (15:58)
[2023-08-21 16:22] VITALS: BP 140/50; TEMP 98; O2SAT 98
[2023-08-21] MEDS ORDERED: EMPAGLIFLOZIN PO SCH (17:00)
[2023-08-21] MEDS ORDERED: METFORMIN HCL PO SCH (17:00)
[2023-08-21 21:01] VITALS: BP 114/53; TEMP 98.8; O2SAT 98
[2023-08-21] MEDS: ATORVASTATIN 40 MG TABLET PO SCH (21:30)
[2023-08-21] MEDS: TRAZODONE 100 MG TABLET PO SCH (21:31)
[2023-08-22 05:20] VITALS: BP 132/52; TEMP 98.8; O2SAT 98
[2023-08-22] MEDS: OXYCODONE HCL 5 MG TABLET PO SCH ×3 (05:32→21:12)
[2023-08-22 06:00] VITALS: BP 135/52; TEMP 98.8; O2SAT 98
[2023-08-22] MEDS: BLOOD SUGAR DIAGNOSTIC 1 EACH STRIP VI SCH ×4 (06:39→21:13)
[2023-08-22 07:34] LABS: BASOPHILS % (AUTO) 0.5 % (0.0-2.0); EOSINOPHILS # (AUTO) 0.1 K/uL (0.0-0.7); EOSINOPHILS % (AUTO) 1.8 % (0.0-7.0); HEMATOCRIT 40.1 % (31.2-41.9); HEMOGLOBIN 13.6 g/dL (10.9-14.3); LYMPHOCYTES % (AUTO) 29.2 % (20.5-51.5); MEAN CORPUSCULAR HEMOGLOBIN 30.8 uug (24.7-32.8); MEAN CORPUSCULAR HGB CONC 34 g/dL (32.3-35.6); MEAN CORPUSCULAR VOLUME 90.9 fL (75.5-95.3); MONOCYTES # (AUTO) 0.4 K/uL (0.1-1.30); MONOCYTES % (AUTO) 6.4 % (0.0-11.0); NEUTROPHILS # (AUTO) 4.3 K/uL (1.8-8.9); NEUTROPHILS % (AUTO) 62.1 % (38.5-71.5); PLATELET COUNT (AUTO) 161 K/uL (179-408); RED BLOOD CELL COUNT(AUTO) 4.41 MIL/uL (3.63-4.92); RED CELL DISTRIBUTION WIDTH 13.8 % (12.3-17.7); WHITE BLOOD COUNT (AUTO) 6.9 K/uL (3.8-11.8)
[2023-08-22 07:42] VITALS: BP 117/50; TEMP 98.4; O2SAT 99
[2023-08-22 07:42] LABS: CALCIUM 9.4 mg/dL (8.5-10.1); CREATININE 0.8 mg/dL (0.6-1.3); POTASSIUM 4.1 mmol/L (3.5-5.1)
[2023-08-22 07:51] LABS: DIFFERENTIAL COMMENT 1
[2023-08-22] MEDS: INSULIN REGULAR, HUMAN 300 UNIT/3 ML VIAL SQ PRN ×4 (07:57→21:27)
[2023-08-22] MEDS: LOSARTAN POTASSIUM 50 MG TABLET PO SCH (08:45)
[2023-08-22] MEDS: GABAPENTIN 300 MG CAPSULE PO SCH ×2 (08:46→21:12)
[2023-08-22] MEDS: PANTOPRAZOLE SODIUM 40 MG TABLET.DR PO SCH (08:46)
[2023-08-22] MEDS: APIXABAN 5 MG TABLET PO SCH ×2 (08:46→16:36)
[2023-08-22] MEDS: CALCIUM CARBONATE 600 MG TABLET PO SCH (08:46)
[2023-08-22] MEDS: CHOLECALCIFEROL 1,000 UNIT TABLET PO SCH (08:47)
[2023-08-22] MEDS: CARVEDILOL 25 MG TABLET PO SCH ×2 (08:47→16:35)
[2023-08-22] MEDS: CLOTRIMAZOLE 1% CREAM 30 GM TUBE TOP SCH ×4 (08:47→21:28)
[2023-08-22] MEDS: NEOMY/BACITRAC/POLYMI OINT 28.35 GM TUBE TOP SCH ×2 (08:48→16:37)
[2023-08-22] MEDS: REMEDY ESSENTIAL ZINC PASTE 113 GM TOP SCH ×2 (08:48→16:36)
[2023-08-22 15:36] VITALS: BP 117/45; TEMP 98.2; O2SAT 98
[2023-08-22 20:00] VITALS: BP 124/55; TEMP 98.3; O2SAT 98
[2023-08-22] MEDS: ATORVASTATIN 40 MG TABLET PO SCH (21:12)
[2023-08-22] MEDS: TRAZODONE 100 MG TABLET PO SCH (21:12)
[2023-08-23 05:30] VITALS: BP 141/57; TEMP 98.8; O2SAT 96
[2023-08-23] MEDS: OXYCODONE HCL 5 MG TABLET PO SCH ×3 (05:59→21:56)
[2023-08-23] MEDS: BLOOD SUGAR DIAGNOSTIC 1 EACH STRIP VI SCH ×4 (06:32→20:50)
[2023-08-23 07:50] VITALS: BP 130/44; TEMP 97.6; O2SAT 96
[2023-08-23] MEDS: EMPAGLIFLOZIN 25 MG TABLET PO SCH (09:18)
[2023-08-23] MEDS: CARVEDILOL 25 MG TABLET PO SCH ×2 (09:19→17:48)
[2023-08-23] MEDS: CHOLECALCIFEROL 1,000 UNIT TABLET PO SCH (09:19)
[2023-08-23] MEDS: CALCIUM CARBONATE 600 MG TABLET PO SCH (09:20)
[2023-08-23] MEDS: PANTOPRAZOLE SODIUM 40 MG TABLET.DR PO SCH (09:20)
[2023-08-23] MEDS: METFORMIN HCL 500 MG TABLET PO SCH ×2 (09:20→17:47)
[2023-08-23] MEDS: LOSARTAN POTASSIUM 50 MG TABLET PO SCH (09:20)
[2023-08-23] MEDS: CLOTRIMAZOLE 1% CREAM 30 GM TUBE TOP SCH ×4 (09:21→20:57)
[2023-08-23] MEDS: GABAPENTIN 300 MG CAPSULE PO SCH ×2 (09:21→20:55)
[2023-08-23] MEDS: REMEDY ESSENTIAL ZINC PASTE 113 GM TOP SCH ×2 (09:22→17:49)
[2023-08-23] MEDS: NEOMY/BACITRAC/POLYMI OINT 28.35 GM TUBE TOP SCH ×2 (09:22→17:54)
[2023-08-23] MEDS: APIXABAN 5 MG TABLET PO SCH ×2 (09:25→17:48)
[2023-08-23] MEDS: INSULIN REGULAR, HUMAN 300 UNIT/3 ML VIAL SQ PRN ×3 (11:56→20:52)
[2023-08-23 16:11] VITALS: BP 139/62; TEMP 97.6; O2SAT 96
[2023-08-23 20:35] VITALS: BP 111/40; TEMP 98.3; O2SAT 95
[2023-08-23] MEDS: ATORVASTATIN 40 MG TABLET PO SCH (20:55)
[2023-08-23] MEDS: TRAZODONE 100 MG TABLET PO SCH (20:55)
[2023-08-24 04:09] VITALS: BP 119/49; TEMP 98.8; O2SAT 95
[2023-08-24] MEDS: OXYCODONE HCL 5 MG TABLET PO SCH (05:56)
[2023-08-24] MEDS: BLOOD SUGAR DIAGNOSTIC 1 EACH STRIP VI SCH ×2 (07:37→11:44)
[2023-08-24 07:49] VITALS: BP 138/69; TEMP 98.2; O2SAT 97
[2023-08-24] MEDS: PANTOPRAZOLE SODIUM 40 MG TABLET.DR PO SCH (08:56)
[2023-08-24] MEDS: METFORMIN HCL 500 MG TABLET PO SCH (08:56)
[2023-08-24 08:57] VITALS: BP 138/69
[2023-08-24] MEDS: CARVEDILOL 25 MG TABLET PO SCH (08:57)
[2023-08-24] MEDS: CALCIUM CARBONATE 600 MG TABLET PO SCH (08:57)
[2023-08-24] MEDS: CHOLECALCIFEROL 1,000 UNIT TABLET PO SCH (08:57)
[2023-08-24] MEDS: LOSARTAN POTASSIUM 50 MG TABLET PO SCH (08:57)
[2023-08-24] MEDS: GABAPENTIN 300 MG CAPSULE PO SCH (08:57)
[2023-08-24] MEDS: EMPAGLIFLOZIN 25 MG TABLET PO SCH (08:58)
[2023-08-24] MEDS: APIXABAN 5 MG TABLET PO SCH (08:59)
[2023-08-24] MEDS: INSULIN REGULAR, HUMAN 300 UNIT/3 ML VIAL SQ PRN ×2 (09:00→11:48)
[2023-08-24] MEDS: CLOTRIMAZOLE 1% CREAM 30 GM TUBE TOP SCH ×2 (09:13)
[2023-08-24] MEDS: REMEDY ESSENTIAL ZINC PASTE 113 GM TOP SCH (09:14)
[2023-08-24] MEDS: NEOMY/BACITRAC/POLYMI OINT 28.35 GM TUBE TOP SCH (09:14)
== END 2023-08-24 14:30 | disposition home health service (06) | DRG 57 ==
LOC: MERGE 08-17 19:56
PROVIDERS: ADMIT Physical Medicine & Rehabilitation Pain Medicine; ATTEND Physical Medicine & Rehabilitation Pain Medicine
DX: I69.351 Hemiplegia and hemiparesis following cerebral infarction affecting right dominant side (principal); D68.59 Other primary thrombophilia; I50.32 Chronic diastolic (congestive) heart failure; E11.65 Type 2 diabetes mellitus with hyperglycemia; E66.9 Obesity, unspecified; E78.5 Hyperlipidemia, unspecified; G89.29 Other chronic pain; M54.9 Dorsalgia, unspecified; Z85.3 Personal history of malignant neoplasm of breast; M19.90 Unspecified osteoarthritis, unspecified site; I48.0 Paroxysmal atrial fibrillation; I11.0 Hypertensive heart disease with heart failure; Z87.891 Personal history of nicotine dependence; F41.9 Anxiety disorder, unspecified; Z88.1 Allergy status to other antibiotic agents; Z88.2 Allergy status to sulfonamides; Z88.3 Allergy status to other anti-infective agents
CPT/HCPCS: 36415; 83735; 84100; 85025; 97535-GO-CO; A4663; A6209; A6213; J1815